=== PATIENT | female | born 1960 | race Caucasian/White ===

== ENCOUNTER 2017-06-09 14:11 | Inpatient (IN) ==
[2017-06-09] MEDS ORDERED: TORADOL IV PRN ×2 (15:20→16:11)
[2017-06-09] MEDS: NS 1,000 ML IV SCH ×2 (15:43→23:24)
[2017-06-09] MEDS: ZOFRAN IV PRN ×2 (15:44→22:54)
[2017-06-09] MEDS: PROTONIX IV SCH (16:00)
[2017-06-09] MEDS: LOVENOX SUBQ SCH (16:00)
[2017-06-09 16:07] LABS: MANUAL DIFF NEEDED? NO
[2017-06-09 16:15] LABS: BASO% 0.4 % (0.0-0.8); EOS# 0.26 X1000 (0.0-0.7); EOS% 1.9 % (0.0-10.0); HEMATOCRIT 46.4 % (37.0-47.0); HEMOGLOBIN 15.8 g/dL (12.0-16.0); IMM GRAN# 0.12 X1000 (0.0-0.04); IMM GRAN% 0.9 % (0.0-0.5); LYMPH# 2.05 X1000 (1.2-3.4); LYMPH% 14.8 % (20.5-51.1); MCH 33.9 PG (27-31); MCHC 34.1 g/dL (33-37); MCV 99.6 FL (81-99); MONO% 6.5 % (1.7-9.3); MPV 10.6 FL (7.4-10.4); NEUT% 75.5 % (42.2-75.2); PLT 330 X1000 (130-400); RBC 4.66 XMIL (4.2-5.4)
--- NOTE | 2017-06-09 16:18 | Diag Imaging Result Doc PS360 ---
EXAM: CHEST-2 VIEWS - 06/09/2017 HISTORY: abdominal pain/nausea TECHNIQUE: Chest two views COMPARISON: 06/29/2014 FINDINGS: Heart size is normal. The lungs appear clear. There is no pleural effusion or pneumothorax identified. IMPRESSION: No evidence of acute disease. Electronically signed by Tylor Arce 06/09/2017 4:16 PM
[2017-06-09 16:38] LABS: ALBUMIN 4.5 g/dL (3.5-5.0); CALCIUM 9.6 mg/dL (8.8-10.2); POTASSIUM 4.4 mmol/L (3.5-5.1); TOTAL BILIRUBIN 0.84 mg/dL (0.20-1.00); TOTAL PROTEIN 8.1 g/dL (6.3-8.3)
[2017-06-09] MEDS ORDERED: NS 500 ML IV ONE (18:38)
--- NOTE | 2017-06-09 21:09 | Diag Imaging Result Doc PS360 ---
EXAM: CT ABD/PELVIS W/ IV CONT ONLY - 06/09/2017 HISTORY: Abd pain/persistent nausea TECHNIQUE: With intravenous contrast only per request the referring provider. Dose reduction protocol. COMPARISON: Without contrast exam of 06/29/2014 FINDINGS: The visualized lung bases appear essentially clear. There is hepatomegaly with fatty infiltration of the liver. There is no focal liver lesion identified. There is a 1.5 cm splenic calcification. This is likely long-standing Septisol calcified cyst. There is a possible small right adrenal adenoma. The left adrenal gland and pancreas are unremarkable. The gallbladder is mildly distended. There are no calcified gallstones or pericholecystic inflammation identified. There is an apparent 1 cm cyst at the lower left kidney. The bilateral kidneys otherwise enhance homogeneously. There is no hydronephrosis. There are nonspecific small retroperitoneal lymph nodes. There are some lumbar spine degenerative changes noted. There is no evidence of bowel obstruction. The appendix is retrocecal location shows no evidence of inflammation. There is colonic diverticulosis. There is no evidence of diverticulitis. There is no free air, substantial free fluid, or abscess identified. There is no abnormal pelvic mass or fluid collection identified. The uterus deviates to the right which is likely long-standing. The urinary bladder is nondistended. IMPRESSION: Hepatomegaly with fatty infiltration of the liver. No evidence of focal liver lesion. Mildly distended gallbladder. No calcified gallstones. No pericholecystic inflammation. No bowel obstruction. Unremarkable appendix. Colonic diverticulosis. No evidence of diverticulitis. No abscess. No free air. Electronically signed by Tylor Arce 06/09/2017 9:07 PM
--- NOTE | 2017-06-09 21:39 | HISTORY AND PHYSICAL ---
CHIEF COMPLAINT: Persistent nausea, vomiting, hurting in the right side of the abdomen and the back. Not able to eat for the last 1 month. HISTORY OF PRESENT ILLNESS: She is a 57-year-old, pleasant white female, who was last seen in my office in April 2016. Basically came to my office with the above symptoms. Patient is cyanotic, low blood pressure, near syncope. She has hurting in the upper abdomen and she has been hospitalized basically for near-syncope, dehydration, azotemia and further evaluation for this abdominal pain. PAST MEDICAL HISTORY: Chronic anxiety, type 2 diabetes, metabolic syndrome, dysphagia due to Schatzki's ring, acid reflux disease, hyperlipidemia, hypertension, hyperuricemia, sleep apnea. PAST SURGICAL HISTORY: Right rotator cuff surgery. 1. Right ankle surgery. MEDICATIONS: In my office are atenolol 25 mg daily, lisinopril/ hydrochlorothiazide 20/25 daily, metformin 500 p.o. b.i.d., pravastatin 20 mg daily, Zantac 150 p.o. b.i.d., Victoza 1.2 mg subcutaneous daily. ALLERGIES: Not known. SOCIAL HISTORY: 2nd time. One son. No smoking, no alcohol, retired. FAMILY HISTORY: Father at the age of 28, killed in a tornado. Mom 73 years old with CAD, COPD and lupus. HEALTH MAINTENANCE: Influenza vaccine refused. Pap smear 2013. EGD and colonoscopy by Dr. Aguirre. REVIEW OF SYSTEMS: HEENT: Very emotional. No headache, no vision problem. No earache. No sore throat. Neck: No goiter. No lymphadenopathy. No bruit. Cardiopulmonary: No chest pain, shortness of breath, PND, orthopnea. GI: Nausea, vomiting, abdominal pain, near syncope. No altered bowel habits. No bleeding per rectum. : No history of hesitancy, frequency, dysuria. No swelling of legs. No joint pains. No back pain. Neurologic: No focal symptoms of weakness or seizures. PHYSICAL EXAMINATION: VITAL SIGNS: Afebrile. Blood pressure is 84/60, tachycardic, 5 feet 5, 249 pounds. HEENT: Atraumatic, normocephalic. Pupils equal, react to light. TMs are normal. Nose and throat within normal limits. Slightly cyanotic. NECK: Supple. No lymphadenopathy. No goiter. CHEST: Bilateral air entry. HEART: Sounds are regular. ABDOMEN: Belly is soft and obese. No signs of peritonitis. No peripheral edema or cyanosis. NEUROLOGIC: No obvious neurological deficits. INVESTIGATIONS: CBC: White cell count 13, hematocrit 46, platelets 330,000. SMA 7 . Sodium 133, potassium 4.4, BUN 23, creatinine 1.8, glucose 112, increased LFTs. ProBNP is normal. Total protein is normal, amylase is 43. Chest x-ray is negative. ASSESSMENT AND PLAN: 1. A 57-year-old white female, admitted to the hospital with near syncope, hypotension and azotemia with persistent nausea and vomiting. Plan is IV fluids and follow up on SMA 7. 2. Elevated white cell count. Follow up on urinalysis culture and sensitivity. Chest x-ray is negative. 3. Hypotension. Hold the blood pressure medicine. 4. History of lupus in the family, Arthritic profile is negative. 5. Asymptomatic hyperuricemia, stable. 6. Hyperlipidemia on pravastatin. 7. Type 2 diabetes. On metformin 500 p.o. b.i.d., along with B12 tablets as well as, Victoza. 8. Dysphagia due to Schatzki's ring dilated by Dr. Aguirre. 9. Elevated liver function tests. Previous workup was negative except fatty liver. 10. DVT and GI prophylaxis with Lovenox and Protonix. We will follow up. Discussed with the family. cc: Graeme Triana MD MTDD
[2017-06-09 22:09] LABS: URINE SOURCE VOIDED
[2017-06-09 22:26] LABS: BILIRUBIN URINE SMALL (NEGATIVE); BLOOD URINE SMALL (NEGATIVE); COLOR ORANGE; GLUCOSE URINE TRACE mg/dL (NEGATIVE); LEUKOCYTES URINE MODERATE (NEGATIVE); NITRITE URINE NEGATIVE (NEGATIVE); PH URINE 5.5; PROTEIN URINE 300 mg/dL (NEGATIVE); TURBIDITY URINE TURBID (CLEAR); UROBILINOGEN URINE NORMAL (NORMAL)
[2017-06-09 22:36] LABS: SP GRAVITY URINE 1.034
[2017-06-09 22:37] LABS: URINE MICRO REVIEW NEEDED? YES
[2017-06-09 22:42] LABS: UR EPITHELIAL CELLS >10 /HPF (<10); URINE BACTERIA NEGATIVE /HPF; URINE RBC <10 /HPF (<10); URINE WBC TNTC /HPF (<10)
[2017-06-09 22:49] LABS: URINE CASTS EPITHELIAL PRESENT
[2017-06-10] MEDS: NS 1,000 ML IV SCH ×3 (04:29→17:30)
[2017-06-10 06:46] LABS: MANUAL DIFF NEEDED? NO
[2017-06-10 07:00] LABS: BASO% 0.3 % (0.0-0.8); EOS# 0.34 X1000 (0.0-0.7); EOS% 3.3 % (0.0-10.0); HEMATOCRIT 37.1 % (37.0-47.0); HEMOGLOBIN 12.5 g/dL (12.0-16.0); IMM GRAN# 0.06 X1000 (0.0-0.04); IMM GRAN% 0.6 % (0.0-0.5); LYMPH# 2.46 X1000 (1.2-3.4); LYMPH% 24.2 % (20.5-51.1); MCHC 33.7 g/dL (33-37); MCV 100.8 FL (81-99); MONO# 0.89 X1000 (0.11-0.59); MONO% 8.8 % (1.7-9.3); MPV 10.4 FL (7.4-10.4); NEUT% 62.8 % (42.2-75.2); PLT 220 X1000 (130-400); RBC 3.68 XMIL (4.2-5.4)
[2017-06-10 07:15] LABS: HEMOGLOBIN A1C 6.1 % (4.8-6.0)
[2017-06-10 07:17] LABS: AGAP 14; ALBUMIN 3.8 g/dL (3.5-5.0); ALKALINE PHOSPHATASE 80 U/L (32-104); BUN 31 mg/dL (8-22); CALCIUM 8.2 mg/dL (8.8-10.2); CHLORIDE 89 mmol/L (98-107); CK PROFILE 120 U/L (24-173); COSMO 264; GOT 115 U/L (10-30); GPT 156 U/L (10-36); HDL 31 mg/dL (45-65); LDL 137 mg/dL; SODIUM 128 mmol/L (136-145); TCO2 25 mmol/L (25-35); TOTAL BILIRUBIN 0.93 mg/dL (0.20-1.00); TOTAL PROTEIN 6.5 g/dL (6.3-8.3); TRIGLYCERIDES 300 mg/dL (35-135); VLDL 60 mg/dL
[2017-06-10 07:23] LABS: FREE T4 1.41 ng/dL (0.93-1.70)
[2017-06-10 08:06] LABS: SED RATE 20 mm/hr (0-20)
[2017-06-10] MEDS ORDERED: SODIUM CHLORIDE 0.9% INJ PRN (09:09)
[2017-06-10] MEDS: PHENERGAN IV PRN ×2 (09:27→21:03)
[2017-06-10] MEDS: LOVENOX SUBQ SCH (16:12)
[2017-06-10] MEDS: PROTONIX IV SCH (16:13)
[2017-06-10 16:27] LABS: URINE CULTURE NEEDED? NO; URINE MICRO REVIEW NEEDED? NO; URINE SOURCE CATH
[2017-06-10 16:32] LABS: BILIRUBIN URINE NEGATIVE (NEGATIVE); BLOOD URINE NEGATIVE (NEGATIVE); COLOR STRAW; GLUCOSE URINE NEGATIVE (NEGATIVE); LEUKOCYTES URINE NEGATIVE (NEGATIVE); NITRITE URINE NEGATIVE (NEGATIVE); PH URINE 5.5; PROTEIN URINE NEGATIVE (NEGATIVE); SP GRAVITY URINE 1.003; TURBIDITY URINE CLEAR (CLEAR); UR EPITHELIAL CELLS <10 /HPF (<10); URINE BACTERIA NEGATIVE /HPF; URINE RBC <10 /HPF (<10); URINE WBC <10 /HPF (<10); UROBILINOGEN URINE NORMAL (NORMAL)
--- NOTE | 2017-06-10 18:50 | PROGRESS NOTE ---
DATE: 06/10/2017 SUBJECTIVE: The patient is feeling dizzy and this is a detail level 3 complicated dictation. Spent time about 35 minutes with the family. REVIEW OF SYSTEMS: Dizziness, abdominal pain, spasms on the left side of the abdomen. The patient had a CT scan of the abdomen and pelvis done. No swelling of legs. EXAMINATION: She is afebrile. Blood pressure is low, 90/53.HEENT: Within normal limits. Neck: Supple. No lymphadenopathy. Chest: Clear. Heart: Sounds are regular. Abdomen: Belly is soft, nontender. Good bowel sounds. No peripheral edema, cyanosis. No obvious neurological deficits. INVESTIGATIONS: CBC: White cell count 10, hematocrit 37, platelets 220,000. SMA 7: Sodium 128, potassium 4, BUN 31, creatinine 2.3. A1c 6.1. Uric acid 13.5. AST and ALT high. ProBNP, cardiac enzymes were normal. Triglycerides 300, cholesterol 228, LDL 137. Normal amylase. TSH, free T4 is normal. CT scan of the abdomen and pelvis mildly distended gallbladder, no stones. Hepatomegaly with fatty liver. Colonic diverticulosis. ASSESSMENT AND PLAN: 1. Acute kidney injury due to hypotension. Continue to hold on blood pressure medicine. 2. Acute kidney failure. Continue on IV fluids. Increase to 125 an hour. 3. Postvoid residual more than 100. Alexander catheter. 4. DVT prophylaxis with Lovenox. 5. Gastrointestinal prophylaxis with IV Protonix. 6. Abdominal pain, nausea and vomiting. Etiology to be determined. Rule out gallbladder disease. Ultrasound of the abdomen in the morning. If it is negative, HIDA scan. 7. Type 2 diabetes. A1c is stable. 8. Metabolic syndrome and normal thyroid function tests. Also check the cortisol level and hepatitis profile in the morning. Continue on the clear liquid diet. Discussed the plan of care with the patient as well as the and the level of documentation if 35 minutes. cc: Graeme Triana MD
[2017-06-11] MEDS: NS 1,000 ML IV SCH ×2 (02:39→15:56)
[2017-06-11 06:44] LABS: MANUAL DIFF NEEDED? NO
[2017-06-11 06:52] LABS: BASO% 0.3 % (0.0-0.8); EOS# 0.21 X1000 (0.0-0.7); EOS% 3.2 % (0.0-10.0); HEMOGLOBIN 13.2 g/dL (12.0-16.0); IMM GRAN# 0.03 X1000 (0.0-0.04); IMM GRAN% 0.5 % (0.0-0.5); LYMPH# 1.67 X1000 (1.2-3.4); LYMPH% 25.5 % (20.5-51.1); MCH 34.6 PG (27-31); MCHC 33.8 g/dL (33-37); MCV 102.4 FL (81-99); MONO# 0.53 X1000 (0.11-0.59); MONO% 8.1 % (1.7-9.3); MPV 10.5 FL (7.4-10.4); NEUT% 62.4 % (42.2-75.2); PLT 215 X1000 (130-400); RBC 3.81 XMIL (4.2-5.4)
[2017-06-11 07:20] LABS: ALBUMIN 3.9 g/dL (3.5-5.0); CALCIUM 8.6 mg/dL (8.8-10.2); POTASSIUM 4.4 mmol/L (3.5-5.1); TOTAL BILIRUBIN 0.89 mg/dL (0.20-1.00); TOTAL PROTEIN 6.9 g/dL (6.3-8.3)
--- NOTE | 2017-06-11 08:43 | Diag Imaging Result Doc PS360 ---
EXAM: US ABDOMEN-COMPLETE - 06/11/2017 HISTORY: abdominal pain TECHNIQUE: Ultrasound abdomen COMPARISON: CT abdomen of 06/09/2017 FINDINGS: The gallbladder is slightly distended but otherwise unremarkable. There are no gallstones or abnormal gallbladder wall thickening identified. There is no pericholecystic fluid seen. The common bile duct is normal caliber at 4 mm. The technologist reports negative sonographic Castillo's sign. The liver appears diffusely echodense compatible with fatty infiltration. There is no focal liver lesion identified. The spleen is normal size contains a nonspecific 1.5 cm calcification. There is no ascites seen. There is a 1.1 cm left renal cyst. There are no other abnormalities of the bilateral kidneys identified. Visualized portions of the pancreas are unremarkable. Visualized portions of abdominal aorta and IVC are normal caliber. IMPRESSION: Slightly distended gallbladder, which otherwise appears normal. No evidence of gallstones. Normal caliber common bile duct at 4 mm. Fatty infiltration of liver. Electronically signed by Tylor Arce 06/11/2017 8:41 AM
[2017-06-11 11:26] LABS: HEPATITIS PROFILE ACUTE SEE COMMENTS
[2017-06-11] MEDS ORDERED: STERILE WATER INJ. ONE (12:09)
[2017-06-11] MEDS ORDERED: NS 500 ML ONE (12:15)
--- NOTE | 2017-06-11 14:44 | Diag Imaging Result Doc PS360 ---
HIDA SCAN W/ EJECTION FRACTION - 06/11/2017 INDICATION: abdominal bloating COMPARISON: None FINDINGS: 5.2 millicuries of Choletec was administered. There is normal uptake and clearance by the liver. There is normal excretion into the gallbladder and small bowel. 2.3 mg of CCK was given. The gallbladder ejection fraction is essentially zero%. IMPRESSION: No gallbladder emptying during the exam. This is compatible with chronic cholecystitis or biliary dyskinesia. An abnormally low ejection fraction (less than 35%) can be present in patients without gallbladder dyskinesis or chronic cholelithiasis to have other medical conditions. These include but are not limited to, patients with diabetic mellitus, irritable bowel syndrome, , gastroenteritis. peptic ulcer disease, and patients receiving morphine or nifedipine. Electronically signed by Jose Lunsford 06/11/2017 2:41 PM
[2017-06-11] MEDS: SODIUM CHLORIDE 0.9% INJ SCH (15:46)
[2017-06-11] MEDS: LOVENOX SUBQ SCH (15:46)
[2017-06-11] MEDS: PROTONIX IV SCH (15:46)
--- NOTE | 2017-06-11 18:24 | PROGRESS NOTE ---
DATE: 06/11/2017 SUBJECT: The patient is a little better. Continues to have nausea and vomiting with fatty meals. Complains of upper abdominal pain. Hemodynamics were stable. Complains of bladder spasms. REVIEW OF SYSTEMS: HEENT: No dizziness. No headache. Cardiopulmonary: No chest pain, shortness of breath. GI: Upper abdominal pain, nausea, vomiting. Alexander catheter was there with bladder spasms. No swelling of feet. Neurologic: No focal symptoms or weakness. PHYSICAL EXAMINATION: Vital Signs: He is afebrile. Vitals are stable. She is not orthostatic. HEENT: Within normal limits. Neck: Supple. No lymphadenopathy. No goiter. Chest: Bilateral air entry. No rales. No wheezing. Heart: Sounds are regular. Abdomen: Belly is soft, obese, nontender. Good bowel sounds. Tender in the right upper quadrant. No peripheral edema, cyanosis. No obvious neurological deficits. INVESTIGATIONS: CBC: White cell count 6.5, hematocrit 39, platelets 215,000. SMA 7: Sodium 138, potassium 4.4, chloride 102, BUN 15, creatinine 1.0, glucose 114. Elevated LFTs. Hepatitis profile is negative. Cortisol level 18.4. Urinalysis is clear. Ultrasound of the abdomen is negative except distended gallbladder and hepatomegaly. HIDA scan is positive with 0% with CCK. ASSESSMENT AND PLAN: 1. Acute kidney injury, improving. 2. Hypovolemia due to dehydration, better. 3. Upper abdominal pain due to acalculous cholecystitis with positive HIDA scan. Consult with Dr. Godoy. 4. Plan of care. Decrease IV fluids 50 mL/hour. Discontinue Alexander. Discontinue telemetry. Continue to monitor orthostatic blood pressure. Discussed the plan of care with the patient and the and the consultants with the radiologist, detailed communication. LEVEL OF DOCUMENTATION: 35 minutes. cc: Graeme Triana MD
--- NOTE | 2017-06-11 19:06 | CONSULTATION ---
DATE OF CONSULTATION: 06/11/2017 REASON FOR CONSULTATION: Dysfunctional gallbladder. CONSULTING SURGEON: Dc Godoy MD. REQUESTING PHYSICIAN: Graeme Triana MD. HISTORY OF PRESENT ILLNESS: This is a 57-year-old female who has been having recurrent severe nausea and vomiting for the last month. She also complains of some right upper abdominal pain. These symptoms are worse after eating greasy food. She initially was admitted with severe nausea, poor p.o. intake, hypotension and electrolyte abnormalities. She is improved after some IV hydration. PAST MEDICAL HISTORY: Chronic anxiety, type 2 diabetes, metabolic syndrome, chronic dysphagia, acid reflux disease, hyperlipidemia, hypertension, hyperuricemia, sleep apnea. PAST SURGICAL HISTORY: Right rotator cuff repair, , right ankle surgery. HOME MEDICATIONS: Lisinopril/hydrochlorothiazide, atenolol, metformin, pravastatin, Zantac, Victoza. ALLERGIES: No known drug allergies. SOCIAL HISTORY: No tobacco, alcohol or illicit drug use. She is . FAMILY HISTORY: Notable for coronary artery disease, COPD and lupus in her mother. REVIEW OF SYSTEMS: Ten systems reviewed and negative except as noted above. PHYSICAL EXAMINATION: Vital Signs: Temperature 98 degrees, pulse 101, respirations 21, blood pressure 154/70, O2 saturation 100%. General: Well-developed, well-nourished female, in no distress who looks her stated age. HEENT: Normocephalic, atraumatic. Extraocular muscles intact. Pupils equal, round, reactive to light. Sclerae anicteric. Moist mucous membranes. Neck: Supple. No thyromegaly. Cardiovascular: Regular rate and rhythm. Respiratory: Bilateral equal breath sounds. No work of breathing. Gastrointestinal: Soft, nondistended. No organomegaly or mass. She is mildly tender to palpation in the right upper quadrant and epigastrium. No rebound or guarding. Extremities: No clubbing, cyanosis, or edema. Skin: Warm and dry. No rash. Musculoskeletal: Moves all extremities equally and well. LABORATORY: White cell count 6.5, hemoglobin 13, platelet count 215,000. Sodium 138, potassium 4.4, chloride 102, CO2 22, BUN 15, creatinine 1.0, glucose 125, total bilirubin 0.89, AST 164, ALT 182, alkaline phosphatase 87. IMAGING: Abdominal ultrasound done today shows a slightly distended gallbladder, otherwise appeared normal. Abdominal CT scan done 2 days ago showed a mildly distended gallbladder but otherwise was unremarkable. HIDA scan done today showed 0% gallbladder ejection fraction. ASSESSMENT/PLAN: A 57-year-old female with severe biliary dyskinesia. We are planning laparoscopic cholecystectomy tomorrow with cholangiogram. I discussed risks, benefits and alternatives with her including bleeding, infection, injury to surrounding organs such as the intestines or bile duct, incisional hernia, and other imponderables. She understands and agrees to proceed. cc: MD Graeme Wood MD
[2017-06-11] MEDS ORDERED: PHENERGAN PO PRN (20:55)
[2017-06-11] MEDS: MORPHINE IV PRN (22:55)
[2017-06-12] MEDS ORDERED: VERSED ONE (06:15)
[2017-06-12] MEDS ORDERED: FENTANYL ONE ×2 (06:16→06:17)
[2017-06-12] MEDS ORDERED: DIPRIVAN 1% ONE (06:16)
[2017-06-12] MEDS ORDERED: QUELICIN (DOSE) ONE (06:19)
[2017-06-12] MEDS ORDERED: XYLOCAINE-MPF 2% ONE (06:19)
[2017-06-12] MEDS ORDERED: ROBINUL ONE (06:23)
[2017-06-12] MEDS ORDERED: SENSORCAINE 0.5%-EPI 1:200,000 ONE (06:32)
[2017-06-12] MEDS ORDERED: LR 1,000 ML ONE (06:33)
[2017-06-12] MEDS ORDERED: SODIUM CHLORIDE 0.9% ONE (06:33)
[2017-06-12] MEDS ORDERED: KEFZOL 1 GM/D5W 1 GM/50 ML IVPB ONE (06:46)
[2017-06-12] MEDS ORDERED: KEFZOL 1 GM/D5W 1 GM/50 ML IVPB IV ONE (07:00)
[2017-06-12] MEDS ORDERED: ZEMURON ONE (07:06)
[2017-06-12] MEDS ORDERED: OFIRMEV 1000 MG/ISOTONIC SOLN 1,000 MG/100 ML BOTTLE ONE (07:26)
[2017-06-12] MEDS ORDERED: NEO-SYNEPHRINE ONE (07:26)
--- NOTE | 2017-06-12 07:47 | Diag Imaging Result Doc PS360 ---
OPERATIVE CHOLANGIOGRAM - 06/12/2017 INDICATION: GALLBLADDER DISEASE TECHNIQUE: The exam was performed by the patient's surgeon. One image was submitted. COMPARISON: CT from 06/09/2017 FINDINGS: Contrast was infused into the cystic duct. This outlines a normal common bile duct with good passage of contrast into the duodenum. No strictures or filling defects. IMPRESSION: Negative exam. Electronically signed by Jose Lunsford 06/12/2017 7:44 AM
[2017-06-12] MEDS ORDERED: ZOFRAN ONE (07:52)
[2017-06-12] MEDS ORDERED: NORCO-7.5 PO PRN (09:24)
[2017-06-12] MEDS: MORPHINE IV PRN ×2 (09:40→14:36)
--- NOTE | 2017-06-12 12:30 | OPERATIVE NOTE ---
PROCEDURE DATE: 06/12/2017 PREOPERATIVE DIAGNOSIS: Biliary dyskinesia. POSTOPERATIVE DIAGNOSIS: Biliary dyskinesia. PROCEDURE PERFORMED: Laparoscopic cholecystectomy with operative cholangiogram. SURGEON: Dc Godoy MD ANESTHESIA: General. ESTIMATED BLOOD LOSS: 5 mL. COMPLICATIONS: None apparent. SPECIMENS: Gallbladder. FINDINGS: The gallbladder was moderately distended with bile. The cholangiogram revealed normal proximal hepatic radicles and distal bile duct. There was flow of contrast into the duodenum. No filling defects or stenoses were appreciated. TECHNIQUE: The patient was brought to the operating room and placed supine on the table. General anesthesia was induced. She was prepped and draped in usual sterile fashion. 0.5% Marcaine with epinephrine was used to anesthetize our incisions. An 11 mm incision was made above the umbilicus. The fascia was exposed and incised sharply. Entry into the peritoneal cavity was obtained under direct vision with the Optiview device. A pneumoperitoneum was established. The camera was inserted. There was no evidence of injury to underlying structures. She was placed in reverse Trendelenburg and left rotation. Three 5 mm incision and ports were placed across the epigastric and right upper quadrant below the costal margin per usual routine. The dome of the gallbladder was grasped by the assistant engineer with an Allis clamp and lifted up superiorly. The gallbladder was moderately distended with bile. I went ahead and aspirated out the bile with the needle and suction. This helped with better mobility and retraction. I then dissected out the triangle of Calot with a Maryland forceps and using hook cautery to incise the peritoneum on either side of the triangle. The critical view was obtained. The gallbladder-liver junction was seen. There were only 2 structures entering the gallbladder, the cystic duct and cystic artery. The artery was clipped proximally and distally and incised in between. The duct was clipped distally. A ductotomy was made proximal to this with scissors. A 14-gauge Angiocath was passed through the right upper quadrant. The Taut cholangiogram catheter was passed through this into the cystic duct and held in place with a clip. The cholangiogram was performed with findings as noted above. The clip, catheter, and Angiocath were then removed. Two clips were placed on the proximal cystic duct. It was divided distal to those 2 with scissors. The gallbladder was removed from the liver bed using hook cautery, obtaining hemostasis along the way. After it was removed, I inspected the dissection area. There were no signs of any bleeding or bile leakage. I irrigated with saline and suctioned out the irrigant, a little bit of old blood, and old bile. Again, I checked the dissection area and there were no signs of bleeding or bile leakage. The gallbladder was then placed in an EndoCatch bag and brought out through the umbilical port site under direct vision. The umbilical fascia was closed with 0 Vicryl using the Dov-Nydia device under direct vision. We desufflated the abdomen and removed the ports. The skin was closed with running 4-0 subcuticular Monocryl and Steri-Strips. There were no apparent complications. She was awakened in stable condition and transferred to the recovery room. cc: MD Graeme Wood MD
[2017-06-12] MEDS: NS 1,000 ML IV SCH (13:34)
[2017-06-12 14:32] VITALS: BP 136/71
[2017-06-12] MEDS: PROTONIX IV SCH (14:37)
[2017-06-12] MEDS: SODIUM CHLORIDE 0.9% INJ SCH (14:37)
--- NOTE | 2017-06-14 14:13 | DISCHARGE SUMMARY ---
ADMISSION DATE: 06/09/2017 DISCHARGE DATE: 06/12/2017 DISCHARGING DIAGNOSES: 1. Acute kidney injury due to hypovolemia, due to intractable nausea, vomiting and abdominal pain. 2. Abdominal pain due to acalculous cholecystitis. Ejection fraction 0% of gallbladder function with HIDA scan with CCK. 3. Chronic anxiety. 4. Type 2 diabetes. 5. Metabolic syndrome. 6. Fatty liver. 7. History of dysphagia due to Schatzki's ring and acid reflux disease. 8. Hyperlipidemia. 9. Hypertension. 10. Hyperuricemia. 11. Sleep apnea. CONSULTATIONS: Dr. Godoy PROCEDURE: Lap cholecystectomy. RADIOLOGY PROCEDURES: 1. Ultrasound of the abdomen. Gallbladder is distended, no gallstones, with a fatty liver. 2. HIDA scan with CCK. Positive with 0% of function. 3. 24-hour urine studies for cortisol and pheochromocytoma pending. BRIEF HISTORY: Please see the H and P that was done on 06/09/2017. In brief, she is a 57-year- old, pleasant white female, with above problems, who was admitted directly from my office with syncope, hypertension, nausea, vomiting and abdominal pain. At the time of admission, the patient was hypovolemic, hyponatremic, acute kidney injury due to low blood pressure. She was given crystalloids with normal saline bolus, followed by IV hydration. Alexander catheter was placed. Followup hydration renal function test came back normal, as well as hemodynamics. Further workup for abdominal pain with CT of the abdomen and pelvis. Findings were reassuring. Ultrasound was negative for gallstones, except fatty liver. HIDA scan was positive for acalculous cholecystitis. Surgical consult was obtained by Dr. Godoy on the following day. The patient had a lap cholecystectomy done, and she is tolerating the diet very well. Symptoms are much improved. All the findings were discussed with the patient, as well as . Postoperative day course, once she is tolerating the diet. Hemodynamics were stable. LABORATORIES: CBC: White cell count 6.5, hematocrit 39, platelets 215,000. SMA 7: Sodium 138, potassium 4.4, chloride 102, BUN 15, creatinine 1.0, glucose 125. Uric acid 13.5, calcium 8.6. AST and ALT were high. ProBNP is normal. Cardiac enzymes were normal. Cholesterol 228, triglycerides 300, LDL 137, HDL 31. Amylase is normal. TSH and free T4 are normal. Cortisol level 18.4, normal. Hepatitis panel was negative for A, B and C. The 24-hour urine studies for pheochromocytoma and [place]in[place] syndrome were pending. DISCHARGE INSTRUCTIONS: Hold the blood pressure medicines, metoprolol and atenolol for 1 week. Continue on Zantac 150 p.o. b.i.d. and Prilosec 40 daily. Conde was given for pain by Dr. Godoy. Also hold the lisinopril, as well as Victoza. Follow up in my office next week, as well as Dr. Godoy. cc: MD Dr. Walt Lanier
== END 2017-06-12 18:43 | disposition home or self-care (01) ==
LOC: DIRADM 14:11 → 3N 14:31
PROVIDERS: ADMIT Internal Medicine; ATTEND Internal Medicine

== ENCOUNTER 2019-08-02 14:08 | Inpatient (IN) ==
[2019-08-02 15:43] LABS: BASO# 0.03 X1000 (0.0-0.2); BASO% 0.3 % (0.0-0.8); EOS# 0.27 X1000 (0.0-0.7); EOS% 2.3 % (0.0-10.0); HEMATOCRIT 39.6 % (37.0-47.0); HEMOGLOBIN 12.9 g/dL (12.0-16.0); IMM GRAN# 0.04 X1000 (0.0-0.04); IMM GRAN% 0.3 % (0.0-0.5); LYMPH# 2.08 X1000 (1.2-3.4); LYMPH% 17.7 % (20.5-51.1); MCH 32.3 PG (27-31); MCHC 32.6 g/dL (33-37); MONO# 0.98 X1000 (0.11-0.59); MONO% 8.3 % (1.7-9.3); MPV 9.9 FL (7.4-10.4); NEUT# 8.38 X1000 (1.4-6.5); NEUT% 71.1 % (42.2-75.2); PLT 248 X1000 (130-400); RDW 13.4 % (11.5-14.5); WBC 11.78 X1000 (4.8-10.8)
[2019-08-02 16:12] LABS: AGAP 12; ALB/GLOB RATIO 1.4; ALBUMIN 4.2 g/dL (3.5-5.0); ALKALINE PHOSPHATASE 90 U/L (32-104); BUN 17 mg/dL (8-22); CALCIUM 9.3 mg/dL (8.8-10.2); CHLORIDE 105 mmol/L (98-107); COSMO 282; CREATININE 0.7 mg/dL (0.5-0.9); ESTIMATED GFR > 60; GLUCOSE 92 mg/dL (70-104); GOT 17 U/L (10-30); GPT 27 U/L (10-36); POTASSIUM 4.2 mmol/L (3.5-5.1); SODIUM 141 mmol/L (136-145); TCO2 24 mmol/L (25-35); TOTAL BILIRUBIN 0.34 mg/dL (0.20-1.00); TOTAL PROTEIN 7.3 g/dL (6.3-8.3)
[2019-08-02] MEDS: ZOSYN 3.375 GM in NS 50 ML IV SCH ×2 (17:15→23:37)
--- NOTE | 2019-08-02 17:39 | Diag Imaging Result Doc PS360 ---
EXAM: CT ABD/PELVIS W/IV CONT ONLY HISTORY: Abdominal pain TECHNIQUE: CT abdomen and pelvis with intravenous contrast COMPARISON: 06/09/2017 FINDINGS: The gallbladder has been removed. There is fatty infiltration of the liver. Tiny hepatic cyst. Dense calcification posteriorly in the spleen similar to the prior study. No splenomegaly. No pancreatic abnormality. Normal adrenal glands. Tiny renal cysts. No hydronephrosis. No aortic aneurysm. Mild atherosclerosis. Minimal inflammation at the base of the appendix. No free air. No abscess. No bowel obstruction. There are scattered colonic diverticula. The urinary bladder is moderately distended and is normal. Normal uterus and ovaries. IMPRESSION: 1.Mild acute appendicitis 2.Cholecystectomy 3.There is fatty infiltration of the liver 4.Colonic diverticulosis This report was discussed with Dr. Triana on 08/02/2019 at 5:35 PM and was readback. This exam was performed using automated exposure control, adjustment of mA or kV according to patient size, and/or use of iterative reconstruction technique. Electronically signed by Miguel Martinez 08/02/2019 5:37 PM
[2019-08-02] MEDS: NS 1,000 ML IV SCH (18:16)
[2019-08-02] MEDS ORDERED: TORADOL IV PRN (19:21)
[2019-08-02] MEDS ORDERED: NEXIUM IV SCH (19:30)
[2019-08-02] MEDS ORDERED: SODIUM CHLORIDE 0.9% INJ SCH (19:30)
[2019-08-02] MEDS: ZOFRAN IV PRN (20:07)
[2019-08-02] MEDS ORDERED: DILAUDID IV ONE (20:12)
[2019-08-02] MEDS: SODIUM CHLORIDE 0.9% INJ SCH (20:52)
[2019-08-02] MEDS: PROTONIX IV SCH (20:52)
[2019-08-02] MEDS: CARDIZEM CD PO SCH (20:53)
--- NOTE | 2019-08-02 22:01 | GENERAL SURGERY CONSULTATION ---
DATE: 08/02/2019 REQUESTING PHYSICIAN: Cleveland Triana MD REASON FOR CONSULTATION: Appendicitis. HISTORY OF PRESENT ILLNESS: This is a 57-year-old female who is known to me from prior cholecystectomy who began having right-sided mid to lower abdominal pain 3 days ago. It has been constant but worse with movement and associated with decreased appetite, constipation, and diarrhea. It has been severe and waxes and waning in intensity. No relieving factors. No fever. No nausea or vomiting. PAST MEDICAL HISTORY: Chronic anxiety, type 2 diabetes, metabolic syndrome, dysphagia, acid reflux, hyperlipidemia, hypertension, hyperuricemia, sleep apnea, supraventricular tachycardia. PAST SURGICAL HISTORY: Right rotator cuff surgery, section, right ankle surgery, meniscal surgery and laparoscopic cholecystectomy. HOME MEDICATIONS: Atenolol 50 mg p.o. daily, lisinopril/hydrochlorothiazide, metformin, pravastatin, Zantac, diltiazem 240 mg p.o. at bedtime. ALLERGIES: No known drug allergies. SOCIAL HISTORY: No tobacco, alcohol or illicit drug use. FAMILY HISTORY: Positive for CAD, COPD, and lupus. REVIEW OF SYSTEMS: Ten systems reviewed and negative except as noted above. PHYSICAL EXAMINATION: Vital Signs: Temperature 98 degrees, pulse 89, respirations 24, blood pressure 141/67, O2 saturation 100%. General: Well-developed, obese female in no distress who looks her stated age. HEENT: Normocephalic, atraumatic. Extraocular muscles intact. Pupils equal, round, reactive to light. Sclerae anicteric. Moist mucous membranes. Hearing grossly normal. Neck: Supple. No thyromegaly. Cardiovascular: Regular rate and rhythm. Respiratory: Bilateral breath sounds. No work of breathing. Gastrointestinal: Soft, tender especially on the right side. No organomegaly or mass. No hernias. She does have some voluntary guarding. Extremities: No clubbing, cyanosis, or edema. Skin: Warm and dry. No rash. Musculoskeletal: Moves all extremities equally and well. LABORATORY DATA: White blood cell count 11.8, hemoglobin 12.9, hematocrit 39. Electrolytes reviewed and unremarkable. IMAGING: CT of the abdomen and pelvis shows some mild inflammation around the base of the appendix without free air or abscess. No bowel obstruction, consistent with mild early acute appendicitis. ASSESSMENT AND PLAN: A 59-year-old female with likely acute appendicitis. We are planning laparoscopic appendectomy in the morning. I discussed the risks and benefits with her including bleeding, infection, injury to surrounding organs such as the intestines, incisional hernia, and other imponderables. We will treat her pain tonight, give her IV fluids and she has already been started on Zosyn. cc: MD Graeme Wood MD
--- NOTE | 2019-08-02 22:30 | HISTORY AND PHYSICAL ---
CHIEF COMPLAINT: Right lower quadrant pain for the last 1 day. HISTORY OF PRESENT ILLNESS: She is a 59-year-old pleasant white female who came to my office with the family with 1-day history of right lower quadrant pain. The patient has a low-grade fever, elevated white cell count of 11,000. Exam is compatible with clinical suspicious for appendicitis. The patient is a lot of pain. Admitted to the hospital directly from my office for rule out acute appendicitis. CT scan was done. Dr. Martinez called me. The patient does have mild appendicitis. Dr. Godoy was consulted. He is going to do the appendectomy in the morning. Findings discussed with the family and currently stable on the floor. PAST MEDICAL HISTORY: Chronic anxiety, type 2 diabetes, metabolic syndrome, dysphagia due to Schatzki ring, acid reflux disease, hyperlipidemia, hyperuricemia, sleep apnea. PAST SURGICAL HISTORY: Cholecystectomy, C-sections x1, right rotator cuff surgery, right ankle surgery. MEDICATIONS: In my office, atenolol 25 daily, lisinopril/hydrochlorothiazide 20/25 daily, metformin 500 p.o. b.i.d., pravastatin 20 daily, Zantac 150 p.o. b.i.d., Victoza 1.2 once a day. ALLERGIES: Not known. SOCIAL HISTORY: for 10 years, 1 son. works in banking. No smoking. No drug abuse. No alcohol. Lives in [place]. FAMILY HISTORY: Father at the age of 28, killed in a tornado. Mom is with lupus, CAD. HEALTH MAINTENANCE: Last physical exam was done 08/10/2018 and refusing for influenza vaccine. Colonoscopy 2014. Pap smear in 2013. REVIEW OF SYSTEMS: HEENT: No headache. No vision problem. No earache. No sore throat. Neck: No goiter. No lymphadenopathy. No bruit. Cardiopulmonary: No chest pain, shortness of breath, PND, orthopnea. GI: Right lower quadrant pain. Low-grade fever. No altered bowel habits. No bleeding per rectum. : No history of hesitancy, frequency, dysuria and no swelling of legs. No joint pain. Neurologic: No focal symptoms or weakness. EXAMINATION: Vital signs: Low-grade fever and pulse is 80. Vitals are stable. Weight 245 pounds. HEENT: Atraumatic, normocephalic. Pupils equal, reactive to light. TMs are normal. Nose and throat within normal limits. Neck: Supple. No lymphadenopathy. No goiter. Chest: Bilateral air entry. Heart: Sounds are regular. Abdomen: Belly is soft and obese. Tender in the right lower quadrant area. No signs of peritonitis. No peripheral edema or cyanosis. Neurologic: No obvious neurological deficits. INVESTIGATIONS: CBC as attached. White cell count 11,000. CT scan of the abdomen and pelvis: Cholecystectomy, fatty liver, tiny hepatic cyst. No splenomegaly. Colonic diverticulosis. Mild acute appendicitis. ASSESSMENT AND PLAN: 1. A 59-year-old white female admitted to the hospital with right lower quadrant pain with acute appendicitis. Plan is NPO except ice chips. IV fluids and IV antibiotics with Zosyn. Surgical consult electric motor control assembler, Dr. Godoy. 2. Deep venous thrombosis and gastrointestinal prophylaxis as per order sheet. Lovenox and Nexium. We will hold the home medications. Toradol for p.r.n. pain. Discussed the family at bedside. I appreciate the surgical consult. Follow up. The patient has been scheduled for laparoscopic appendectomy in the morning. cc: Graeme Triana MD
[2019-08-02] MEDS: LOVENOX SUBQ SCH (23:20)
[2019-08-03] MEDS: DILAUDID IV PRN (01:42)
[2019-08-03] MEDS: ZOFRAN IV PRN ×3 (03:46→22:05)
[2019-08-03] MEDS: NS 1,000 ML IV SCH ×2 (03:50→18:53)
[2019-08-03] MEDS: ZOSYN 3.375 GM in NS 50 ML IV SCH ×3 (06:06→18:54)
--- NOTE | 2019-08-03 07:33 | EKG Report ---
Test Performed on : 08/03/2019 07:20:28 AM Test Reason : surgery Blood Pressure : / mmHG Vent. Rate : 085 BPM Atrial Rate : 085 BPM P-R Int : 206 ms QRS Dur : 074 ms QT Int : 388 ms P-R-T Axes : 038 011 021 degrees QTc Int : 461 ms Normal sinus rhythm. Normal ECG When compared with ECG of 29-JUN-2014 13:59, No significant change was found Confirmed by Tammie WILKINSON, Lang Maldonado ([id number]) on 08/04/2019 8:58:34 AM
--- NOTE | 2019-08-03 08:55 | GENERAL SURGERY PROGRESS NOTE ---
DATE: 08/03/2019 SUBJECTIVE: The patient reports some nausea and continued pain, but the pain is not as bad as last night. OBJECTIVE: She is afebrile. Vital signs are stable.General: She is awake, alert, and oriented x3. No acute distress. GI: Soft, tender in the right lower quadrant, but with less severity. ASSESSMENT/PLAN: 59-year-old female with right lower abdominal pain and nausea and likely acute appendicitis. We are planning laparoscopic appendectomy today. She has no further questions. We will proceed and potentially discharged home later today. cc: MD Graeme Wood MD
[2019-08-03] MEDS: CARDIZEM CD PO SCH ×2 (09:32→20:01)
[2019-08-03] MEDS: TENORMIN PO SCH (09:44)
[2019-08-03] MEDS ORDERED: DIPRIVAN 1% ONE (10:02)
[2019-08-03] MEDS ORDERED: LR 1,000 ML ONE (10:19)
[2019-08-03] MEDS ORDERED: SENSORCAINE-MPF 0.5%/EPI 1:200,000 ONE (10:30)
[2019-08-03] MEDS ORDERED: FENTANYL ONE (10:54)
[2019-08-03] MEDS ORDERED: DECADRON ONE (11:26)
[2019-08-03] MEDS ORDERED: ZOFRAN ONE (11:26)
[2019-08-03] MEDS ORDERED: NEOSTIGMINE ONE (11:40)
[2019-08-03] MEDS ORDERED: ROBINUL ONE (11:40)
[2019-08-03 12:08] LABS: URINE SOURCE CATH
[2019-08-03 12:12] LABS: BILIRUBIN URINE NEGATIVE (NEGATIVE); BLOOD URINE TRACE (NEGATIVE); COLOR YELLOW; GLUCOSE URINE NEGATIVE (NEGATIVE); KETONE URINE NEGATIVE (NEGATIVE); LEUKOCYTES URINE NEGATIVE (NEGATIVE); NITRITE URINE NEGATIVE (NEGATIVE); PH URINE 5.5; PROTEIN URINE NEGATIVE (NEGATIVE); SP GRAVITY URINE 1.021; TURBIDITY URINE TURBID (CLEAR); UROBILINOGEN URINE NORMAL (NORMAL)
[2019-08-03] MEDS ORDERED: ZEMURON ONE (12:35)
[2019-08-03 12:40] LABS: UR EPITHELIAL CELLS <10 /HPF (<10); URINE BACTERIA NEGATIVE /HPF; URINE RBC <10 /HPF (<10); URINE WBC <10 /HPF (<10)
[2019-08-03 12:42] LABS: URINE CRYSTALS URIC ACID PRESENT
[2019-08-03] MEDS ORDERED: KETAMINE ONE (12:49)
[2019-08-03] MEDS ORDERED: OFIRMEV 1000 MG/ISOTONIC SOLN 1,000 MG/100 ML BOTTLE ONE (12:51)
[2019-08-03] MEDS ORDERED: TORADOL ONE (12:51)
[2019-08-03] MEDS: DILAUDID ONE ×3 (13:54→17:05)
--- NOTE | 2019-08-03 14:55 | OPERATIVE NOTE ---
PROCEDURE DATE: 08/03/2019 PREOPERATIVE DIAGNOSIS: Acute appendicitis. POSTOP DIAGNOSIS: Cecal mass and probable diverticulitis of the cecum. PROCEDURE: Laparoscopic converted open right hemicolectomy. SURGEON: Dc Godoy MD. ANESTHESIA: General. ESTIMATED BLOOD LOSS: 50 mL. COMPLICATIONS: None apparent. SPECIMENS: Right colon and terminal ileum. FINDINGS: Findings the appendix did not appear to be inflamed in the cecum. However, there was an area of indurated inflamed fat in the polyp and possible intraluminal mass as determined laparoscopically. Once opened and the colon was palpated it again confirmed suspicion of a nearly golf ball sized mass in the cecum. Once the specimen was removed and brought out on the back table it was opened and revealed inspissated stool in what appears to be a large cecal diverticulum. I did not see a mucosal based mass at that point. TECHNIQUE: The patient was brought to the operating room and placed supine on the table. General anesthesia was induced. A Alexander catheter was placed. She was prepped and draped in usual sterile fashion 0.5% Marcaine with epinephrine was used to anesthetize our incisions. A 12 mm incision was made in the midline above the umbilicus. The fascia was exposed and incised sharply. Entry into the peritoneal cavity was obtained under direct vision with the Optiview device. Pneumoperitoneum was established. The camera was inserted. There was no evidence of injury to underlying structures. Two 5 mm incision and ports were placed under direct vision, 1 in the lower midline and 1 in epigastrium just to the right of midline. Later another 5 mm incision port was placed in the right lower quadrant to continue dissection and removal of the specimen. The camera was inserted. Pneumoperitoneum was established. I mobilized the omentum and small bowel out of the pelvis and examined the appendix. It appeared normal. However, on the anterior aspect of the cecum, there was some indurated fatty tissue, what appeared to be some peritonitis along the surface of the cecum and I had concern for a cecal mass. I decided to go ahead and perform a right colectomy. The ileocolic pedicle was identified. The fat of the mesentery was cleaned off around it with cautery and blunt dissection and then the ileocolic pedicle was divided with an Endo-GINO vascular staple load. I then proceeded to dissect from medial to lateral underneath the right colon mesentery it from the underlying retroperitoneum. I did identify the duodenum and stayed away from it during the dissection. I continued this up through and under the hepatic flexure. I then incised the hepatocolic ligament with cautery and the LigaSure device and came around the hepatic flexure with the LigaSure, mobilizing it completely away from the right lateral sidewall. I continued dissecting down the white line of [place], completely mobilizing the right colon and cecum off of the retroperitoneum. I decided to convert to a mini laparotomy. An incision was made from my camera port site fascia into the epigastrium with a knife and carried down through the subcutaneous fat with cautery opening up the fascia and peritoneum with cautery. I exteriorized the right colon and confirmed the presence of a probable mass in the cecum. I divided the transverse colon just past the hepatic flexure with a linear GINO stapler. I confirmed the presence of blood flow in the distal terminal ileum and divided the mesentery up to a point roughly 5 to 6 cm from the ileocecal valve and then divided the ileum with Metzenbaum scissors. The specimen was passed off the field. I then performed a hand-sewn end-to-side anastomosis with a posterior row of interrupted seromuscular 3-0 silk approximating the small bowel to the taenia libera on the colon. I made a colotomy with cautery and then performed a running locking inner suture of 3-0 Vicryl bringing it around anteriorly as a Lb stitch and then over sewed the anterior suture line with another row of interrupted 3-0 silk seromuscular sutures. The anastomosis was patent and viable. There was no signs of leak. I put the bowel back into the abdominal cavity in its anatomic position. I changed gloves and then closed the peritoneum with a running #1 Vicryl, the fascia with a running #1 Maxon and the skin with skin clips. She was awakened in stable condition and transferred to recovery into the recovery room. There were no apparent complications. cc: MD Graeme Wood MD MTDD
[2019-08-03] MEDS ORDERED: HALL'S COUGH LOZENGE MT PRN (20:57)
--- NOTE | 2019-08-03 21:19 | PROGRESS NOTE ---
DATE: 08/03/2019 SUBJECTIVE: This morning patient waiting for laparoscopic appendectomy, and Dr. Godoy went there. He found a cecal mass. Subsequently, right hemicolectomy, large cecal diverticulum with a stool was noted. The patient has an open procedure, difficult IV access. Currently nauseous and pain. The patient also seen twice, morning and postoperative day. OBJECTIVE: Vitals are stable. Morbidly obese. HEENT exam within normal limits. Chest is clear. Heart sounds are regular. Belly is soft, postoperative pain. DIAGNOSTIC STUDIES: No labs were drawn. ASSESSMENT AND PLAN: 1. Postoperative day 1 right hemicolectomy. Follow up on pathology report. Repeat the labs in the morning. 2. Dilaudid for pain. 3. IV fluids. 4. Deep venous thrombosis prophylaxis with Lovenox. 5. GI prophylaxis IV Protonix. 6. Continue IV Zosyn. 7. Family was at bedside. 8. Incentive spirometry. 9. We will follow up. LEVEL OF DOCUMENTATION: INCOMPLETE REPORT -- DICTATION STOPS HERE. cc: Graeme Triana MD
[2019-08-03] MEDS: SODIUM CHLORIDE 0.9% INJ SCH (22:04)
[2019-08-03] MEDS: PROTONIX IV SCH (22:04)
[2019-08-03] MEDS: PERIDEX MT SCH (22:05)
[2019-08-03] MEDS: LOVENOX SUBQ SCH (22:08)
[2019-08-04] MEDS: ZOSYN 3.375 GM in NS 50 ML IV SCH ×4 (00:21→20:35)
[2019-08-04] MEDS: DILAUDID IV PRN ×5 (06:04→21:33)
[2019-08-04] MEDS: ZOFRAN IV PRN ×5 (06:04→21:33)
[2019-08-04] MEDS ORDERED: ZOSYN ONE (06:22)
[2019-08-04 06:29] LABS: HEMATOCRIT 36.6 % (37.0-47.0); MCH 33.4 PG (27-31); MCHC 32.8 g/dL (33-37); MCV 101.9 FL (81-99); MPV 9.9 FL (7.4-10.4); RBC 3.59 XMIL (4.2-5.4); RDW 13.5 % (11.5-14.5); WBC 13.2 X1000 (4.8-10.8)
[2019-08-04 07:42] LABS: AGAP 12; BUN 13 mg/dL (8-22); CALCIUM 8.5 mg/dL (8.8-10.2); CHLORIDE 103 mmol/L (98-107); COSMO 275; CREATININE 0.8 mg/dL (0.5-0.9); ESTIMATED GFR > 60; GLUCOSE 159 mg/dL (70-104); POTASSIUM 4.5 mmol/L (3.5-5.1); SODIUM 136 mmol/L (136-145); TCO2 21 mmol/L (25-35)
[2019-08-04] MEDS: NS 1,000 ML IV SCH ×2 (08:38→22:09)
[2019-08-04] MEDS: TENORMIN PO SCH (08:38)
[2019-08-04] MEDS: PERIDEX MT SCH ×2 (08:38→20:35)
--- NOTE | 2019-08-04 19:21 | GENERAL SURGERY PROGRESS NOTE ---
DATE: 08/04/2019 SUBJECTIVE: The patient feels a little better. She complains of some abdominal pain but it is not as much as before surgery. She has had a little belching, but no nausea or vomiting. No flatus yet. She is tolerating sips of clears. She has sat up on the side of the bed. OBJECTIVE: She is afebrile. Vital signs are stable. Urine output 1200 mL.General: She is awake, alert, oriented x3. No acute distress. Respiratory: No work of breathing. CV: Regular rate and rhythm. GI: Soft, appropriately tender. Incisional dressings are clean and dry. She does have a few bowel sounds. LABORATORY: White blood cell count 13,000, hemoglobin 12, hematocrit 36, platelet count 126,000. Electrolytes reviewed and unremarkable. ASSESSMENT/PLAN: A 59-year-old female postoperative day 1 right hemicolectomy for right cecal mass which is probably diverticulitis. We will keep her on a liquid diet for now. I have encouraged ambulation. We will continue her Zosyn. We will follow up her CBC and thrombocytopenia tomorrow. cc: MD Graeme Wood MD
[2019-08-04] MEDS ORDERED: PHENERGAN IV PRN (19:25)
[2019-08-04] MEDS ORDERED: SODIUM CHLORIDE 0.9% INJ PRN (19:25)
[2019-08-04] MEDS: CARDIZEM CD PO SCH (20:35)
[2019-08-04] MEDS: PROTONIX IV SCH (20:35)
[2019-08-04] MEDS: LOVENOX SUBQ SCH ×2 (20:36→22:03)
--- NOTE | 2019-08-04 22:42 | PROGRESS NOTE ---
DATE: 08/04/2019 SUBJECTIVE: The patient is in a little pain. IV access is problematic. Nausea and not passing any gas. OBJECTIVE: Vital Signs: Stable. HEENT: Within normal limits. Neck: Supple. Chest: Clear. Heart: Sounds are regular. Abdomen: Belly is soft and bowel sounds hyperactive. LABS: CBC: White cell count 13, hematocrit 36, platelets 126,000. SMA 7 was normal. ASSESSMENT AND PLAN: 1. Postoperative day 2 right hemicolectomy for cecal diverticulum with inflammation along with mild appendicitis. Plan is IV fluids. IV Zosyn. 2. Deep venous thrombosis and gastrointestinal prophylaxis as per order sheet. 3. Continue nausea and pain medicine. Out of the bed. Physical therapy, incentive spirometry. Will follow up. Dr. Godoy started her on some full liquid diet. LEVEL OF DOCUMENTATION: 25 minutes. cc: Graeme Triana MD
[2019-08-04] MEDS: PHENERGAN PO PRN (23:59)
[2019-08-05] MEDS: SODIUM CHLORIDE 0.9% INJ SCH ×2 (01:36→20:39)
[2019-08-05] MEDS: ZOSYN 3.375 GM in NS 50 ML IV SCH ×4 (02:34→20:41)
[2019-08-05] MEDS: ZOFRAN IV PRN ×6 (02:38→23:41)
[2019-08-05] MEDS: DILAUDID IV PRN ×6 (02:38→23:41)
[2019-08-05] MEDS: NS 1,000 ML IV SCH (06:09)
[2019-08-05] MEDS: PERIDEX MT SCH ×2 (08:11→20:39)
[2019-08-05] MEDS: TENORMIN PO SCH (08:11)
[2019-08-05 08:25] LABS: BASO# 0.02 X1000 (0.0-0.2); BASO% 0.1 % (0.0-0.8); EOS% 0.6 % (0.0-10.0); HEMATOCRIT 40.7 % (37.0-47.0); HEMOGLOBIN 12.9 g/dL (12.0-16.0); IMM GRAN# 0.07 X1000 (0.0-0.04); IMM GRAN% 0.4 % (0.0-0.5); LYMPH# 1.62 X1000 (1.2-3.4); LYMPH% 10.2 % (20.5-51.1); MCH 32.3 PG (27-31); MCHC 31.7 g/dL (33-37); MONO# 1.46 X1000 (0.11-0.59); MONO% 9.2 % (1.7-9.3); MPV 9.6 FL (7.4-10.4); NEUT# 12.67 X1000 (1.4-6.5); NEUT% 79.5 % (42.2-75.2); PLT 280 X1000 (130-400); RBC 3.99 XMIL (4.2-5.4); RDW 13.8 % (11.5-14.5); WBC 15.94 X1000 (4.8-10.8)
[2019-08-05] MEDS ORDERED: TENORMIN PO SCH (09:00)
[2019-08-05] MEDS: MIRALAX PO SCH (11:31)
[2019-08-05] MEDS: PRINZIDE 10/12.5MG PO SCH (11:31)
--- NOTE | 2019-08-05 12:43 | GENERAL SURGERY PROGRESS NOTE ---
DATE: 08/05/2019 SUBJECTIVE: The patient reports some nausea overnight that has been helped with Phenergan. She has not passed gas yet. She did get out of bed and walked to the commode. OBJECTIVE: She is afebrile. Vital signs are stable. In general, she is awake, alert, and oriented x3. No acute distress. GI is soft, and appropriately tender. Incisional dressing is clean and dry. Bowel sounds are hypoactive. LABORATORY: White blood cell count 15.9, hemoglobin 12.9, and hematocrit 40.7. ASSESSMENT/PLAN: A 59-year-old female postoperative day 2, right hemicolectomy for diverticulitis. We will continue her antibiotics. Keep her on a liquid diet for now. I have encouraged ambulation. cc: MD Graeme Wood MD
[2019-08-05] MEDS: PATIENT'S OWN MED PO SCH (13:57)
[2019-08-05] MEDS: PHENERGAN PO PRN ×2 (17:29→22:54)
[2019-08-05] MEDS: PROTONIX IV SCH (20:39)
[2019-08-05] MEDS: LOVENOX SUBQ SCH ×2 (20:40→20:49)
--- NOTE | 2019-08-05 20:53 | PROGRESS NOTE ---
DATE: 08/05/2019 SUBJECTIVE: Patient is at bedside. Nausea is better and IV access seen on the right foot. Passing gas a lot better than last night. OBJECTIVE: Vital Signs: On examination, temperature is 98 degrees, pulse 77, blood pressure stable. HEENT: Exam within normal limits. Neck: Supple. Chest: Clear. Heart: Sounds are regular. Abdomen: Belly is soft. Bowel sounds 1+. INVESTIGATIONS: White cell count 59.9, hematocrit 40, platelets 280,000. SMA 7 was normal. Urine cultures are negative. ASSESSMENT: 1. Right lower quadrant pain due to cecal diverticulitis and mild appendicitis, status post right hemicolectomy. 2. Metabolic syndrome. 3. Hypertension. 4. Postoperative ileus. PLAN OF CARE: 1. Incentive spirometry. 2. Deep venous thrombosis prophylaxis. 3. Out of the bed with assistance. 4. Reconcile home medicines. 5. Advance slowly diet as tolerated. 6. Decrease intravenous fluids. 7. Will follow up and if she continues to improve, will discharge over the weekend. I appreciated Dr. Godoy's followup. LEVEL OF DOCUMENTATION: 25 minutes. cc: Graeme Triana MD
[2019-08-06] MEDS: CARDIZEM CD PO SCH (00:47)
[2019-08-06] MEDS: ZOSYN 3.375 GM in NS 50 ML IV SCH ×2 (01:38→11:06)
[2019-08-06] MEDS: PHENERGAN PO PRN ×2 (03:15→07:02)
[2019-08-06 08:06] VITALS: BP 125/56
--- NOTE | 2019-08-06 08:48 | PROGRESS NOTE ---
DATE: 08/06/2019 SUBJECTIVE: The patient says she is feeling tired, but feeling a little bit better. She is not nauseated right now. IV in her foot infiltrated and was discontinued. They called me last night about this and wondered what should be done. I suggested that maybe a PICC line could be done since they are having difficulty getting IVs. Told them we could also wait and see what the surgeon said this morning. Found out that she is possibly going home today or tomorrow. was in the room and he said there is not going to be a PICC line placed, and he said that they have not been able to get blood on her and they are not going to draw any more blood now. Under these circumstances, I will let the surgeon decide what needs to be done, and I will discontinue any lab work and the PICC line. The surgeon is going to know her better than I do, and what their plans are with her. OBJECTIVE: Vital Signs: Temperature is 98.8 degrees Fahrenheit. Pulse 69 and regular. Respirations 16 and blood pressure 125/56. HEENT: She is normocephalic. EOMS intact. PERRLA. Throat clear. Lungs: Clear to auscultation and percussion without rhonchi, rales, or wheezes. Heart: Regular rate and rhythm without murmurs, gallops, friction rubs. Abdomen: Soft with some bowel sounds. Her surgery was on the , and she had a right hemicolectomy for diverticular disease. ASSESSMENT: Status post right hemicolectomy for diverticular disease. PLAN: We will let surgeon decide about whether she needs IV access or not. Her lab has shown increasing white counts; from 08/02 it was 11,780, on the it was 13,200, on the it was 15,940. We do not have one from today; apparently the patient and her do not want any more attempts to draw blood at this time. cc: MD Graeme Navas Jr, MD
[2019-08-06] MEDS: PATIENT'S OWN MED PO SCH (11:06)
[2019-08-06] MEDS: MIRALAX PO SCH (11:23)
[2019-08-06] MEDS: TENORMIN PO SCH (11:23)
[2019-08-06] MEDS: PRINZIDE 10/12.5MG PO SCH (11:23)
[2019-08-06] MEDS: PERIDEX MT SCH (11:23)
--- NOTE | 2019-08-06 12:07 | GENERAL SURGERY PROGRESS NOTE ---
DATE: 08/06/2019 SUBJECTIVE: The patient is feeling better. She has passed gas and had a small bowel movement. She is tolerating her diet. She is ambulating. No nausea. No chest pain or shortness of breath. OBJECTIVE: Vital Signs: Afebrile, vital signs are stable. General: She is awake, alert, oriented x3. No acute distress. She is sitting up in a chair. Cardiovascular: Regular rate and rhythm. Respiratory: Bilateral breath sounds. No work of breathing. GI: Soft. Positive bowel sounds. Appropriately tender. Incision is clean, dry, and intact. No erythema. LABORATORY DATA: None today. ASSESSMENT AND PLAN: 59-year-old female status post right hemicolectomy for possible cecal mass but probable diverticulitis. Pathology is pending. She has made good progress. We will transition her to oral Levaquin and Flagyl and she is appropriate for discharge today, which I will go ahead and arrange. She will follow up with me in a week. cc: MD Graeme Wood MD
--- NOTE | 2019-08-07 18:50 | DISCHARGE SUMMARY ---
ADMISSION DATE: 08/02/2019 DISCHARGE DATE: 08/06/2019 DISCHARGING DIAGNOSIS: Acute right lower quadrant pain due to a combination of mild appendicitis and cecal diverticulitis with a lot of stool. SECONDARY DIAGNOSES: 1. Type 2 diabetes. 2. Metabolic syndrome. 3. Dysphagia due to Schatzki's ring. 4. Acid reflux disease. 5. Hyperlipidemia. 6. Hyperuricemia. 7. Sleep apnea. 8. Chronic anxiety. CONSULTS: Dr. Godoy. PROCEDURES: Open right hemicolectomy followed by anastomosis. BRIEF HISTORY: Please see the H and P that was done on 08/02/2019. In brief, she is a 59-year- old pleasant white female who was admitted directly from my office with right lower quadrant pain of 1 day duration. She had low-grade fever, elevated white cell count without signs of peritonitis. Initial CT findings showed cecal diverticulum with mild appendicitis. The patient was given IV fluids and IV Zosyn followed by surgical consult. The patient has a prior cholecystectomy by Dr. Godoy. Apparently during intraoperative period, the patient was found to have large cecal mass, appeared to be diverticulum with stool. As a result, the patient had open right hemicolectomy. Pathology is pending. Postoperative course was uneventful except ileus. The patient was discharged home on 08/06 in a stable condition. LABS: At the time of discharge: White cell count 15.9, hematocrit 40, platelets 280,000. SMA7 is normal. Urine cultures were negative. DISCHARGE INSTRUCTIONS ARE FOLLOWS: 1. Atenolol 50 daily. 2. Zantac 150 p.o. b.i.d. 3. Lisinopril/hydrochlorothiazide 20/25 daily. 4. Cardizem CD 240 at bedtime. 5. Paxil 75 mg daily. 6. Victoza 1.8 mg subcutaneous daily. 7. Flagyl 500 t.i.d. 8. Levaquin 500 daily. 9. [place] for p.r.n. pain. Follow up with Dr. Godoy as well as my office. cc: MD Dc Lanier MD
== END 2019-08-06 12:05 | disposition home or self-care (01) | DRG 330 ==
LOC: INTOOBSV 14:08 → DIRADM 14:08 → OBSVTOIN 14:08 → 4N 14:31
PROVIDERS: ADMIT Internal Medicine; ATTEND Internal Medicine